=== PATIENT | female | born 1980 | race Two or more races ===

== ENCOUNTER 2017-03-21 13:58 | Emergency (ER) | payer OTHER ==
--- NOTE | ~2017-03-21 | CR58 ---
[facility] A Service of [facility] RADIOLOGY TEXT RESULTS PATIENT: ANTONIA PALOMO LOCATION: [facility] : 84 UNIT #: [id number] AGE: [address]: Minda Hanson SEX: F ORDER DR: [id number] [facility] [address] [place], [place] [address] [id number] E MR#: [id number] Acc #: [id number] NAME: ANTONIA PALOMO : 1980 SEX: F STUDY DATE/TIME: 03/21/2017 15:02 UNIT: [facility] ROOM: STUDY DESCRIPTION: CR Cervical Spine 2 or 3 Views Attending Physician: Minda Hanson P.A.-C. Ordering Physician: Minda Hanson P.A.-C. Primary Care Physician: Primary Care Physician No MEDICAL IMAGING REPORT This report is preliminary unless electronic signature is present EXAM Cervical spine, 03/21/2017 HISTORY 36-year-old female with pain right side of neck. Symptoms began 7 days ago. No known injury. FINDINGS AP, lateral and open-mouth odontoid views are provided. There is a slight reversal of the normal cervical curve with normal posterior alignment. Vertebral body heights and disc spaces are preserved. Posterior elements are intact. The odontoid is normal. Prevertebral soft tissues are preserved. IMPRESSION Mild reversal of the normal cervical curve. This can reflect muscle spasm. Negative cervical spine otherwise. Dictated by... Cl Rosen M.D. THIS IS AN ELECTRONICALLY VERIFIED REPORT Cl Rosen M.D. at 03/22/2017 8:10 AM AMBER/miles TD: 03/21/2017 21:07 JOB #: [id number] MEDICAL IMAGING REPORT Page 1 of 1 COPY
== END 2017-03-21 15:44 | disposition home or self-care (01) ==
LOC: CFTX 13:58 → CED 13:58 → CFTX 14:29
DX: S13.4XXA Sprain of ligaments of cervical spine, initial encounter (principal); S23.3XXA Sprain of ligaments of thoracic spine, initial encounter; Z98.890 Other specified postprocedural states; X58.XXXA Exposure to other specified factors, initial encounter; Y92.009 Unspecified place in unspecified non-institutional (private) residence as the place of occurrence of the external cause
CPT/HCPCS: 72040; 96372; 99283; J1885

== ENCOUNTER → 2017-07-14 | Outpatient (CLI) | payer OTHER ==
--- NOTE | ~2017-07-14 | US98 ---
[facility] A Service of [facility] RADIOLOGY TEXT RESULTS PATIENT: ANTONIA MANNING LOCATION: [facility] : 84 UNIT #: [id number] AGE: [address]: LYDIA PATIÑO APRN SEX: F ORDER DR: [id number] [facility] [address] [place], [place] [address] [id number] O MR#: [id number] Acc #: [id number] NAME: ANTONIA MANNING. : 1980 SEX: F STUDY DATE/TIME: 07/14/2017 16:08 UNIT: [facility] ROOM: STUDY DESCRIPTION: US Pelvic Non-OB Complete Attending Physician: Lydia Patiño N.P. Referring Physician: Lydia Patiño N.P. Ordering Physician: Physician Non-Staff Primary Care Physician: Lydia Patiño N.P. MEDICAL IMAGING REPORT This report is preliminary unless electronic signature is present EXAM Pelvic ultrasound, transabdominal and endovaginal HISTORY Pelvic pain 4 weeks. FINDINGS Ultrasound examination of the pelvis was performed with transabdominal and endovaginal technique. There is no uterine mass or enlargement. Endometrium is at the upper limits of normal in thickness measuring 17 mm. Small incidental simple cysts in both ovaries. Blood flow is noted in both ovaries on color Doppler. No free fluid. IMPRESSION 1. Normal ultrasound examination of the pelvis. No endometrial fluid or uterine mass. 2. No free fluid. 3. Blood flow is noted in both ovaries on color Doppler. Small incidental simple cysts in both ovaries. Dictated by... Joseph Michael M.D. THIS IS AN ELECTRONICALLY VERIFIED REPORT Joseph Michael M.D. at 07/17/2017 3:20 PM DFL/stephon TD: 07/16/2017 21:52 [facility] A Service of [facility] RADIOLOGY TEXT RESULTS PATIENT: ANTONIA MANNING LOCATION: [facility] : 84 UNIT #: [id number] AGE: [address]: LYDIA PATIÑO APRN SEX: F ORDER DR: JOB #: [id number] MEDICAL IMAGING REPORT Page 1 of 1 COPY
== END | disposition home or self-care (01) ==
LOC: CWCC 13:30 → CGUS 15:50 → CWCC 07-18 13:30
DX: R10.2 Pelvic and perineal pain (principal)
CPT/HCPCS: 76830; 76856